=== PATIENT | female | born 1965 | race Two or more races ===

== ENCOUNTER → 2016-10-20 | Emergency (ER) | payer OTHER, BC ==
[~2016-10-20] MED LIST: GENOVIA; GLIPPOW9; METF-372; [UNRECOGNIZED DRUG - REMARK]
== END | disposition left against medical advice (07) ==
LOC: ER 00:45
DX: R10.9 Unspecified abdominal pain (principal); Z53.21 Procedure and treatment not carried out due to patient leaving prior to being seen by health care provider

== ENCOUNTER 2017-05-26 15:28 | Emergency (ER) | payer BC, MEDICAID, OTHER ==
[~2017-05-26] VITALS: Ht 165.1 cm; Wt 99.8 kg
[2017-05-26 15:55] VITALS: BP 179/76
[2017-05-26] MEDS ORDERED: KETOROLAC TROMETH 60MG/2ML VIAL IM ONE (17:00)
== END 2017-05-26 17:34 | disposition home or self-care (01) ==
LOC: ER 15:31
DX: S46.912A Strain of unspecified muscle, fascia and tendon at shoulder and upper arm level, left arm, initial encounter (principal); E11.9 Type 2 diabetes mellitus without complications; I10 Essential (primary) hypertension; F17.210 Nicotine dependence, cigarettes, uncomplicated; Z79.84 Long term (current) use of oral hypoglycemic drugs; X58.XXXA Exposure to other specified factors, initial encounter; Y93.72 Activity, wrestling; Y92.89 Other specified places as the place of occurrence of the external cause; Y99.8 Other external cause status
CPT/HCPCS: 73000; 96372; 99284; J1885